=== PATIENT | female | born 1985 | race Caucasian/White ===

== ENCOUNTER 2020-04-16 08:40 | Emergency (ER) | payer BC, OTHER ==
[2020-04-16] MEDS ORDERED: NA CHLORIDE 0.9% 1,000 ML ONE ×2 (09:26→11:43)
[2020-04-16] MEDS ORDERED: ONDANSETRON 4 MG/2 ML VIAL ONE ×2 (09:26→11:49)
[2020-04-16] MEDS ORDERED: FAMOTIDINE 20 MG/2 ML VIAL IV ONE (09:26)
[2020-04-16 09:43] LABS: Absolute Lymphocytes (CBC) 0.6 K/uL (0.7-4.9); Basophils % 0.3 % (0-1.3); Hematocrit 39.4 % (36.0-45.0); Lymphocytes % 17.2 % (15.3-44.8); MPV 9.4 fL (7.6-11.3); RBC Red Blood Cell Count 4.71 M/uL (3.86-4.86)
[2020-04-16 10:00] LABS: Albumin 3.4 g/dL (3.4-5.0); Bilirubin Direct 0.2 mg/dL (0-0.2); Bilirubin Total 0.7 mg/dL (0.2-1.0); Potassium 3.8 mmol/L (3.5-5.1); Protein, Total 7.4 g/dL (6.4-8.2)
[2020-04-16 11:05] LABS: Urine Blood NEGATIVE (NEG); Urine Glucose NEGATIVE (NEG); Urine Protein NEGATIVE (NEG)
--- NOTE | 2020-04-16 11:21 | RAD REPORT ---
EXAM DESCRIPTION: RAD - Abdomen Acute Series - 04/16/2020 10:21 am CLINICAL HISTORY: ABD PAIN , vomiting, patient provided history of positive COVID test COMPARISON: No comparisons FINDINGS: Lungs are clear. No convincing evidence for COVID-19 pneumonia. Heart size and pulmonary v asculature are normal. No pleural effusion, pneumothorax or other acute cardiopulmonary process seen. Bowel gas pattern is nonspecific. No bowel obstruction, free air or other acute findings. No suspicio us calcifications. No other suspicious for significant findings. IMPRESSION: Negative acute abdomen series.
--- NOTE | 2020-04-16 12:24 | ER ---
Nurse's Notes [facility] Name: Erin Rucker Age: 35 yrs Sex: Female : 1985 Arrival Date: 04/16/2020 Time: 08:40 Bed 5 Private MD: Diagnosis: Vomiting-COVID 19 POSITIVE Presentation: 04/16 08:45 Chief complaint: Patient states: diagnosed with COVID-19 at urgent care on Friday. Pt aa5 reports vomiting since Friday and unable to keep any food down. Pt states "I had diarrhea in the beginning but now I haven't had a bowel movement in like 3 days". Pt c/o pain to mid-low back. Reports cough, denies recent fever. 08:45 Coronavirus screen: Client presents with at least one sign or symptom that may indicate aa5 coronavirus-19. Standard/surgical mask placed on the client. Provider contacted for isolation considerations. Client reports previous positive COVID test result. Ebola Screen: Patient negative for fever greater than or equal to 101.5 degrees Fahrenheit, and additional compatible Ebola Virus Disease symptoms. Initial Sepsis Screen: Does the patient meet any 2 criteria? No. Patient's initial sepsis screen is negative. Does the patient have a suspected source of infection? No. Patient's initial sepsis screen is negative. Risk Assessment: Do you want to hurt yourself or someone else? Patient reports no desire to harm self or others. Onset of symptoms was April 2020. 08:45 Acuity: CINDY 3 aa5 08:45 Method Of Arrival: Ambulatory aa5 Triage Assessment: 04/17 09:22 GI: Reports. iw Historical: - Allergies: 04/16 08:45 PENICILLINS; aa5 08:45 Amoxicillin; aa5 - Home Meds: 08:45 None [Active]; aa5 - PMHx: 08:45 None; aa5 - PSHx: 08:45 ; Tonsillectomy; aa5 - Immunization history:: Adult Immunizations unknown. - Family history:: not pertinent. - Social history:: Smoking status: unknown. Screenin:45 Abuse screen: Denies threats or abuse. Denies injuries from another. Nutritional iw screening: No deficits noted. Tuberculosis screening: No symptoms or risk factors identified. Fall Risk None identified. Assessment: 10:15 General: Appears in no apparent distress. comfortable, Behavior is calm, cooperative. iw Pain: Complains of pain in abdomen. Neuro: Level of Consciousness is awake, alert, obeys commands, Oriented to person, place, time, situation, Moves all extremities. Cardiovascular: Patient's skin is warm and dry. GI: Abdomen is. Derm: Skin is intact, is healthy with good turgor. 10:53 Reassessment: Patient appears in no apparent distress at this time. Patient and/or iw family updated on plan of care and expected duration. Pain level reassessed. Patient is alert, oriented x 3, equal unlabored respirations, skin warm/dry/pink. 11:44 Reassessment: Patient appears in no apparent distress at this time. pt requesting more iw nausea medicine, given per JUL. Vital Signs: 08:45 BP 132 / 94; Pulse 100; Resp 16 S; Temp 97.5(O); Pulse Ox 98% on R/A; aa5 11:44 BP 124 / 75; Pulse 89; Resp 16 S; Pulse Ox 100% on R/A; iw ED Course: 08:40 Patient arrived in ED. ag5 08:45 Arm band placed on. aa5 08:47 Maxx Murdock MD is Attending Physician. ginny 09:00 Patient has correct armband on for positive identification. Bed in low position. Call jl7 light in reach. Side rails up X 1. Pulse ox on. NIBP on. 09:04 Triage completed. aa5 09:30 Initial lab(s) drawn, by ca, sent to lab. Inserted saline lock: 20 gauge in left aa5 antecubital area, using aseptic technique. Blood collected. 09:41 Alia Hylton, RN is Primary Nurse. iw 10:21 Abdomen Acute Series XRAY In Process Unspecified. EDMS 12:08 US Abdomen Limited In Process Unspecified. EDMS 12:40 No provider procedures requiring assistance completed. IV discontinued, intact, jl7 bleeding controlled, No redness/swelling at site. Pressure dressing applied. Administered Medications: 09:30 Drug: NS 0.9% 1000 ml Route: IV; Rate: 1 bolus; Site: left antecubital; aa5 11:00 Follow up: Response: No adverse reaction; IV Status: Completed infusion; IV Intake: jl7 1000ml 09:30 Drug: Zofran (Ondansetron) 4 mg Route: IVP; Site: left antecubital; aa5 12:41 Follow up: Response: No adverse reaction jl7 09:30 Drug: Pepcid 20 mg Route: IVP; Site: left antecubital; aa5 12:41 Follow up: Response: No adverse reaction jl7 11:38 Drug: NS 0.9% 1000 ml Route: IV; Rate: 1 bolus; Site: right antecubital; iw 12:30 Follow up: IV Status: Completed infusion; IV Intake: 1000ml jl7 11:38 Drug: Zofran (Ondansetron) 4 mg Route: IVP; Site: right antecubital; iw 12:41 Follow up: Response: No adverse reaction jl7 Intake: 11:00 IV: 1000ml; Total: 1000ml. jl7 12:30 IV: 1000ml; Total: 2000ml. jl7 Outcome: 12:23 Discharge ordered by MD. gross 12:40 Discharged to home ambulatory. jl7 12:40 Condition: stable 12:40 Discharge instructions given to patient, family, Instructed on discharge instructions, follow up and referral plans. medication usage, Demonstrated understanding of instructions, follow-up care, medications, Prescriptions given X 5 12:40 Patient left the ED. jl7 Signatures: Dispatcher [employer] EDMS Maxx Murdock MD MD cha Williams, Irene, RN Vickie Neves RN Kris Marie RN RN jl7 Jose Miguel Manning 5
--- NOTE | 2020-04-16 12:24 | EDPHYS ---
Physician Documentation [facility] Name: Erin Rucker Age: 35 yrs Sex: Female : 1985 Arrival Date: 04/16/2020 Time: 08:40 Bed 5 Private MD: ED Physician Maxx Murdock HPI: 04/16 09:05 This 35 yrs old Female presents to ER via Ambulatory with complaints of ginny COVID+, Vomiting. 09:05 The patient presents to the emergency department with nausea, vomiting, that is ginny continuous. Onset: The symptoms/episode began/occurred yesterday. Possible causes: covid 19. The symptoms are aggravated by nothing. The symptoms are alleviated by nothing. Associated signs and symptoms: The patient has no apparent associated signs or symptoms. Severity of symptoms: At their worst the symptoms were mild moderate. The patient has not experienced similar symptoms in the past. Historical: - Allergies: 08:45 PENICILLINS; aa5 08:45 Amoxicillin; aa5 - Home Meds: 08:45 None [Active]; aa5 - PMHx: 08:45 None; aa5 - PSHx: 08:45 ; Tonsillectomy; aa5 - Immunization history:: Adult Immunizations unknown. - Family history:: not pertinent. - Social history:: Smoking status: unknown. ROS: 09:05 Constitutional: Negative for fever, chills, and weight loss, Eyes: Negative for injury, ginny pain, redness, and discharge, ENT: Negative for injury, pain, and discharge, Neck: Negative for injury, pain, and swelling, Cardiovascular: Negative for chest pain, palpitations, and edema, Respiratory: Negative for shortness of breath, cough, wheezing, and pleuritic chest pain, Back: Negative for injury and pain, : Negative for injury, bleeding, discharge, and swelling, MS/Extremity: Negative for injury and deformity, Skin: Negative for injury, rash, and discoloration, Neuro: Negative for headache, weakness, numbness, tingling, and seizure, Psych: Negative for depression, anxiety, suicide ideation, homicidal ideation, and hallucinations, Allergy/Immunology: Negative for hives, rash, and allergies, Endocrine: Negative for neck swelling, polydipsia, polyuria, polyphagia, and marked weight changes, Hematologic/Lymphatic: Negative for swollen nodes, abnormal bleeding, and unusual bruising. 09:05 Abdomen/GI: Positive for abdominal pain, nausea and vomiting, abdominal cramps, abdominal distension. Exam: 09:08 Constitutional: This is a well developed, well nourished patient who is awake, alert, ginny and in no acute distress. Head/Face: Normocephalic, atraumatic. Eyes: Pupils equal round and reactive to light, extra-ocular motions intact. Lids and lashes normal. Conjunctiva and sclera are non-icteric and not injected. Cornea within normal limits. Periorbital areas with no swelling, redness, or edema. ENT: Nares patent. No nasal discharge, no septal abnormalities noted. Tympanic membranes are normal and external auditory canals are clear. Oropharynx with no redness, swelling, or masses, exudates, or evidence of obstruction, uvula midline. Mucous membranes moist. Neck: Trachea midline, no thyromegaly or masses palpated, and no cervical lymphadenopathy. Supple, full range of motion without nuchal rigidity, or vertebral point tenderness. No Meningismus. Chest/axilla: Normal chest wall appearance and motion. Nontender with no deformity. No lesions are appreciated. Cardiovascular: Regular rate and rhythm with a normal S1 and S2. No gallops, murmurs, or rubs. Normal PMI, no JVD. No pulse deficits. Respiratory: Lungs have equal breath sounds bilaterally, clear to auscultation and percussion. No rales, rhonchi or wheezes noted. No increased work of breathing, no retractions or nasal flaring. Abdomen/GI: Soft, non-tender, with normal bowel sounds. No distension or tympany. No guarding or rebound. No evidence of tenderness throughout. Back: No spinal tenderness. No costovertebral tenderness. Full range of motion. Skin: Warm, dry with normal turgor. Normal color with no rashes, no lesions, and no evidence of cellulitis. MS/ Extremity: Pulses equal, no cyanosis. Neurovascular intact. Full, normal range of motion. Neuro: Awake and alert, GCS 15, oriented to person, place, time, and situation. Cranial nerves II-XII grossly intact. Motor strength 5/5 in all extremities. Sensory grossly intact. Cerebellar exam normal. Normal gait. Vital Signs: 08:45 BP 132 / 94; Pulse 100; Resp 16 S; Temp 97.5(O); Pulse Ox 98% on R/A; aa5 11:44 BP 124 / 75; Pulse 89; Resp 16 S; Pulse Ox 100% on R/A; iw MDM: 08:47 Patient medically screened. [facility] 09:11 Differential diagnosis: Nonspecific abd pain, gastritis, pancreatitis, viral ginny gastroenteritis, gastroenteritis. Data reviewed: vital signs, nurses notes, lab test result(s), EKG, radiologic studies. Data interpreted: residential monitor: rate is 100 beats/min, rhythm is regular, Pulse oximetry: on room air is 98 %. Test interpretation: by ED physician or midlevel provider: ECG, plain radiologic studies. Counseling: I had a detailed discussion with the patient and/or guardian regarding: the historical points, exam findings, and any diagnostic results supporting the discharge/admit diagnosis, lab results, radiology results. 04/16 09:05 Order name: Basic Metabolic Panel; Complete Time: 10:31 [facility] 04/16 09:05 Order name: CBC with Diff; Complete Time: 10:31 [facility] 04/16 09:05 Order name: Hepatic Function; Complete Time: 10:31 [facility] 04/16 09:05 Order name: Lipase; Complete Time: 10:31 [facility] 04/16 09:09 Order name: Troponin (emerg Dept Use Only); Complete Time: 11:25 [facility] 04/16 10:39 Order name: Urine Dipstick--Ancillary (enter results); Complete Time: 11:25 [facility] 04/16 09:05 Order name: Abdomen Acute Series XRAY; Complete Time: 11:25 [facility] 04/16 10:32 Order name: US Abdomen Limited [facility] 04/16 10:39 Order name: Urine --Ancillary (enter results); Complete Time: 11:25 [facility] 04/16 09:05 Order name: IV Saline Lock; Complete Time: 09:37 [facility] 04/16 09:05 Order name: Labs collected and sent; Complete Time: 09:37 [facility] 04/16 09:05 Order name: Urine Dipstick-Ancillary (obtain specimen); Complete Time: 10:35 [facility] 04/16 09:05 Order name: Urine Test (obtain specimen); Complete Time: 10:35 [facility] 04/16 09:09 Order name: EKG; Complete Time: 09:10 [facility] 04/16 09:09 Order name: EKG - Nurse/Tech; Complete Time: 09:37 ginny Administered Medications: 09:30 Drug: NS 0.9% 1000 ml Route: IV; Rate: 1 bolus; Site: left antecubital; aa5 11:00 Follow up: Response: No adverse reaction; IV Status: Completed infusion; IV Intake: jl7 1000ml 09:30 Drug: Zofran (Ondansetron) 4 mg Route: IVP; Site: left antecubital; aa5 12:41 Follow up: Response: No adverse reaction jl7 09:30 Drug: Pepcid 20 mg Route: IVP; Site: left antecubital; aa5 12:41 Follow up: Response: No adverse reaction jl7 11:38 Drug: NS 0.9% 1000 ml Route: IV; Rate: 1 bolus; Site: right antecubital; iw 12:30 Follow up: IV Status: Completed infusion; IV Intake: 1000ml jl7 11:38 Drug: Zofran (Ondansetron) 4 mg Route: IVP; Site: right antecubital; iw 12:41 Follow up: Response: No adverse reaction jl7 Disposition: 04/16/20 12:23 Discharged to Home. Impression: Vomiting - COVID 19 POSITIVE. - Condition is Stable. - Discharge Instructions: Nausea and Vomiting, Adult, Nausea and Vomiting, Adult, [id number], COVID-19. - Prescriptions for Pepcid 20 mg Oral Tablet - take 1 tablet by ORAL route every 12 hours for 10 days; 20 tablet. Zofran 4 mg Oral Tablet - take 1 tablet by ORAL route every 12 hours As needed; 20 tablet. Medrol (Mike) 4 mg Oral Tablets, Dose Pack - take 1 tablet by ORAL route as directed - follow package instructions; 1 packet. Zithromax Z- Mike 250 mg Oral Tablet - take 1 tablet by ORAL route as directed for 5 days Day 1 - take two (2) tablets one time. Day 2, 3, 4 , 5 take one (1) tablet once daily.; 6 tablet. Phenergan 25 mg Rectal Suppository - insert 1 suppository by RECTAL route every 6 hours As needed; 12 suppository. - Medication Reconciliation Form, Thank You Letter, Antibiotic Education, Prescription Opioid Use form. - Follow up: Private Physician; When: 2 - 3 days; Reason: Recheck today's complaints, Continuance of care, Re-evaluation by your physician. - Problem is new. - Symptoms have improved. Signatures: Dispatcher [employer] EDMaxx Hermosillo MD MD cha Williams, Irene, RN Vickie Nevse, RN RN aa5 Kris Hankins, RN RN jl7 Corrections: (The following items were deleted from the chart) 12:40 12:23 04/16/2020 12:23 Discharged to Home. Impression: Vomiting - COVID 19 POSITIVE. jl7 Condition is Stable. Discharge Instructions: Nausea and Vomiting, Adult, Nausea and Vomiting, Adult, [id number], COVID-19. Prescriptions for Pepcid 20 mg Oral Tablet - take 1 tablet by ORAL route every 12 hours for 10 days; 20 tablet, Zofran 4 mg Oral Tablet - take 1 tablet by ORAL route every 12 hours As needed; 20 tablet, Medrol (Mike) 4 mg Oral Tablets, Dose Pack - take 1 tablet by ORAL route as directed - follow package instructions; 1 packet. and Forms are Medication Reconciliation Form, Thank You Letter, Antibiotic Education, Prescription Opioid Use. Follow up: Private Physician; When: 2 - 3 days; Reason: Recheck today's complaints, Continuance of care, Re-evaluation by your physician. Problem is new. Symptoms have improved. ginny
--- NOTE | 2020-04-16 13:49 | RAD REPORT ---
EXAM DESCRIPTION: US - Abdomen Exam Limited - 04/16/2020 12:07 pm CLINICAL HISTORY: ABD PAIN COMPARISON: No comparisons FINDINGS: No gallstones, sludge or other abnormalities within the gallbladder lumen. There is no wal l thickening or pericholecystic fluid. No common duct stone or biliary tree dilatation identified. Partially imaged liver shows fatty infiltration pattern. IMPRESSION: Normal gallbladder and biliary tree ultrasound. Fatty infiltration of a partially imaged liver.
[2020-04-19 23:49] VITALS: TEMP 97.5
[2020-04-19 23:50] VITALS: BP 124/75; O2SAT 100
== END 2020-04-16 12:40 | disposition home or self-care (01) ==
LOC: ER 08:40
DX: U07.1 COVID-19 (principal); Z88.0 Allergy status to penicillin; Z88.1 Allergy status to other antibiotic agents
CPT/HCPCS: 93005; 85025; 80048; 36415; 81025; 80076; 81003; 84484; 83690; 74022; 76705; 99284; J7030 ×2; J2405 ×2